=== PATIENT | female | born 1990 | race Caucasian/White ===

== ENCOUNTER 2018-03-23 14:57 | Emergency (ER) | payer BC, MEDICAID ==
[~2018-03-23] VITALS: Ht 160 cm; Wt 68.0 kg
[2018-03-23 15:03] VITALS: BP_SYST 106
[2018-03-23] MEDS ORDERED: GASTROGRAFIN 120 ML ONE (15:54)
[2018-03-23 16:24] VITALS: BP_SYST 111
== END 2018-03-23 16:24 | disposition home or self-care (01) ==
LOC: SED 14:57
DX: Z43.1 Encounter for attention to gastrostomy (principal); R03.0 Elevated blood-pressure reading, without diagnosis of hypertension; Z90.49 Acquired absence of other specified parts of digestive tract
CPT/HCPCS: 43760; 74240; 99284; Q9963

== ENCOUNTER 2018-12-16 10:27 | Emergency (ER) | payer MEDICAID ==
[~2018-12-16] VITALS: Ht 160 cm; Wt 73.9 kg
--- NOTE | 2018-12-16 10:33 | NUR ---
Patient to ER bed 3 to gown for evaluation. Side rails up. Assumed care.
[2018-12-16 10:35] VITALS: BP_SYST 96
--- NOTE | 2018-12-16 10:35 | NUR ---
Patient brought in by parent, AAOx4, and ambulatory with steady gait. Patient has c/c of body rash with itching. Patient states she just came back from vacation from [place] and there was prolonged sun exposure. Parent also expresses concerns that the G-tube balloon might be deflated, or G-tube is loose. There've been using [id number] topical medications with no improvement of symptoms. Mother states that the rash comes and goes, specifically to abdomen and back area.
--- NOTE | 2018-12-16 10:37 | NUR ---
ER at bedside examining patient.
[2018-12-16 11:08] VITALS: BP_SYST 96
--- NOTE | 2018-12-16 11:08 | NUR ---
Patient given written and verbal discharge instructions and verbalizes understanding. ER MD discussed with patient the results and treatment provided. Patient in stable condition. ID arm band removed. Rx of Prelone and Benadryl given. Patient educated on pain management and to follow up with PMD. Pain Scale 0/10. Opportunity for questions provided and answered. Medication side effect fact sheet provided.
== END 2018-12-16 11:08 | disposition home or self-care (01) ==
LOC: SED 10:27
DX: R21 Rash and other nonspecific skin eruption (principal); Z46.59 Encounter for fitting and adjustment of other gastrointestinal appliance and device
CPT/HCPCS: 99283

== ENCOUNTER 2018-12-17 17:36 | Emergency (ER) | payer MEDICAID ==
[~2018-12-17] VITALS: Ht 160 cm; Wt 73.9 kg
[2018-12-17 17:56] VITALS: BP_SYST 98
--- NOTE | 2018-12-17 17:58 | NUR ---
Patient to ER bed 04 to gown for evaluation. Side rails up.
--- NOTE | 2018-12-17 18:05 | NUR ---
Patient comes to ER accompanied by her mother in personal vehicle. Patient is verbal and ambulatory. Patient comes with complaint of leakage from GTube insertion site. Mother states that GTube is about 6 months old and that they have not had any problems with it before and suddenly today the feeding just runs out. No other complaint or injury at this time.
--- NOTE | 2018-12-17 18:10 | NUR ---
Dr Gupta at bedside for ER evaluation.
--- NOTE | 2018-12-17 18:45 | NUR ---
Dr Gupta at bedside for insertion of GTube #[id number]
--- NOTE | 2018-12-17 19:06 | NUR ---
Radiology at bedside for verification of GTube placement
[2018-12-17] MEDS ORDERED: GASTROGRAFIN 120 ML ONE (19:16)
[2018-12-17 19:56] VITALS: BP_SYST 98
--- NOTE | 2018-12-17 19:56 | NUR ---
Patient given written and verbal discharge instructions and verbalizes understanding. ER MD Dr. Calderon discussed with patient the results and treatment provided. Patient in stable condition. ID arm band removed. Patient educated on pain management and to follow up with PMD. Pain Scale 0/10. Opportunity for questions provided and answered. Medication side effect fact sheet provided.
--- NOTE | 2018-12-17 20:15 | NUR ---
Jeffry jones in ED - 12/18/18 at [id number] Calderon at bedside speaking to patients parents and grandmother.
== END 2018-12-17 19:56 | disposition home or self-care (01) ==
LOC: SED 17:36
DX: Z43.1 Encounter for attention to gastrostomy (principal)
CPT/HCPCS: 43762; 74240; 99284; Q9963

== ENCOUNTER 2019-08-25 16:18 | Emergency (ER) | payer MEDICAID ==
[~2019-08-25] VITALS: Ht 160 cm; Wt 71.2 kg
[2019-08-25 16:20] VITALS: BP_SYST 98
--- NOTE | 2019-08-25 16:20 | NUR ---
Patient triaged and placed in waiting room. VSS and patient appears in no acute distress at this time. Accompanied by MOTHER, awaiting available bed, and MD notified of need for MSE.
--- NOTE | 2019-08-25 16:31 | NUR ---
MOTHER STATES [employer] IS A [facility], CALL PLACED TO HOUSE SUP FOR [employer].
--- NOTE | 2019-08-25 17:10 | NUR ---
Patient to ER bed 03 to gown for evaluation. Side rails up.
--- NOTE | 2019-08-25 17:20 | NUR ---
Patient brought in by MOTHER in the ED for G-tube placement. Patient denied any chest pain or shortness of breath. Denied any fevers, chills, nausea or vomiting. Patient is alert and oriented x3, respirations even and unlabored, speaking in full sentences and ambulating with a steady gait. VSS, pain level 0/10. Father at bedside. Informed of the approximate wait time. Instructed to notify ED staff for any changes in condition or worsening of symptoms. Patient verbalized understanding.
--- NOTE | 2019-08-25 18:00 | NUR ---
ER Dr. Gupta at bedside examining patient.
[2019-08-25 18:19] VITALS: BP_SYST 98
--- NOTE | 2019-08-25 18:20 | NUR ---
Patient given written and verbal discharge instructions and verbalizes understanding. ER MD discussed with patient the results and treatment provided. Patient in stable condition. ID arm band removed. No Rx given. Patient educated on pain management and to follow up with PMD. Pain Scale 0/10. Opportunity for questions provided and answered. Medication side effect fact sheet provided.
== END 2019-08-25 18:20 | disposition home or self-care (01) ==
LOC: SED 16:18
DX: K94.23 Gastrostomy malfunction (principal)
CPT/HCPCS: 99284

== ENCOUNTER 2022-01-04 08:58 | Day surgery (SDC) | payer OTHER, MEDICAID ==
[~2022-01-04] VITALS: Ht 162.6 cm; Wt 83.5 kg
[2022-01-04] MEDS ORDERED: MEPERIDINE 100 MG INJ. 100 MG/ML VIAL ONE (09:53)
[2022-01-04] MEDS ORDERED: BENZOCAINE 20% 0.5mL UD SPRAY MM ONE (09:53)
[2022-01-04] MEDS: MIDAZOLAM HCL 5 MG/5 ML VIAL ONE ×4 (12:40→12:52)
[2022-01-04] MEDS: fentaNYL CITRATE/PF 100 MCG/2 ML AMP ONE ×2 (12:40→12:46)
[2022-01-04 14:13] VITALS: BP_SYST 92
== END 2022-01-04 13:45 | disposition home or self-care (01) ==
LOC: SMU 08:58 → SDS 08:58
PROVIDERS: ATTEND Internal Medicine
DX: K94.23 Gastrostomy malfunction (principal); K21.9 Gastro-esophageal reflux disease without esophagitis; J45.909 Unspecified asthma, uncomplicated; G47.33 Obstructive sleep apnea (adult) (pediatric); Z79.899 Other long term (current) drug therapy
CPT/HCPCS: 36415 ×2; 43246; 84703; 43247; 99152; U0003; G0378; J2250; J3010; 43760; J2175

== ENCOUNTER 2023-04-11 08:01 | Day surgery (SDC) | payer OTHER, MEDICAID ==
[~2023-04-11] VITALS: Ht 160 cm; Wt 70.3 kg
[2023-04-11 08:57] VITALS: O2SAT 96
[2023-04-11 09:00] LABS: SERUM HCG (QUALITATIVE) NEGATIVE (NEGATIVE)
[2023-04-11] MEDS ORDERED: SIMETHICONE 40 MG/0.6 ML ML ONE (09:45)
[2023-04-11] MEDS ORDERED: BENZOCAINE 20% 0.5mL UD SPRAY MM ONE (09:45)
[2023-04-11] MEDS ORDERED: MEPERIDINE 100 MG INJ. 100 MG/ML VIAL ONE (09:46)
[2023-04-11] MEDS ORDERED: MIDAZOLAM HCL 5 MG/5 ML VIAL ONE (09:46)
[2023-04-11 13:23] VITALS: BP_SYST 96; PULSE 88; RESP 18
== END 2023-04-11 12:00 | disposition home or self-care (01) ==
LOC: SDS 08:01 → SMU 08:04 → SDS 12:00
PROVIDERS: ATTEND Internal Medicine
DX: K94.23 Gastrostomy malfunction (principal); K94.22 Gastrostomy infection; R13.19 Other dysphagia
CPT/HCPCS: 43246; 99152; 84703; 36415; G0378; J2250; J2175

== ENCOUNTER 2023-04-28 08:09 | Day surgery (SDC) | payer OTHER, MEDICAID ==
[~2023-04-28] VITALS: Ht 160 cm; Wt 70.3 kg
[2023-04-28] MEDS ORDERED: GASTROGRAFIN 120 ML ONE (09:07)
[2023-04-28 09:11] LABS: SERUM HCG (QUALITATIVE) NEGATIVE (NEGATIVE)
[2023-04-28 13:00] VITALS: BP_SYST 103; PULSE 87; RESP 17; TEMP 97.4; O2SAT 100
== END 2023-04-28 10:52 | disposition home or self-care (01) ==
LOC: SDS 08:09 → SMU 08:10 → SDS 10:52
PROVIDERS: ATTEND Internal Medicine
DX: Z01.818 Encounter for other preprocedural examination (principal); K94.23 Gastrostomy malfunction; J45.909 Unspecified asthma, uncomplicated; K21.9 Gastro-esophageal reflux disease without esophagitis; G47.33 Obstructive sleep apnea (adult) (pediatric)
CPT/HCPCS: 74018; 84703; 36415; Q9963

== ENCOUNTER 2023-11-27 07:00 | Day surgery (SDC) | payer BC ==
[~2023-11-27] VITALS: Ht 162.6 cm; Wt 52.2 kg
[2023-11-27] MEDS ORDERED: MIDAZOLAM HCL 5 MG/5 ML VIAL ONE (08:09)
[2023-11-27] MEDS ORDERED: MEPERIDINE 100 MG INJ. 100 MG/ML VIAL ONE (08:09)
[2023-11-27 08:30] LABS: SERUM HCG (QUALITATIVE) NEGATIVE (NEGATIVE)
[2023-11-27 09:00] VITALS: O2SAT 99
[2023-11-27 19:16] VITALS: BP_SYST 113; PULSE 100; RESP 11
== END 2023-11-27 10:29 | disposition home or self-care (01) ==
LOC: SDS 07:00
PROVIDERS: ATTEND Internal Medicine
DX: K94.23 Gastrostomy malfunction (principal); K31.6 Fistula of stomach and duodenum; K25.9 Gastric ulcer, unspecified as acute or chronic, without hemorrhage or perforation; R13.19 Other dysphagia; K21.9 Gastro-esophageal reflux disease without esophagitis; J45.909 Unspecified asthma, uncomplicated; Z98.890 Other specified postprocedural states; Z88.7 Allergy status to serum and vaccine; Z79.899 Other long term (current) drug therapy
CPT/HCPCS: 43255; 99152; 84703; 36415; 43246; G0378; J2250; J2175